=== PATIENT | female | born 1955 | race Caucasian/White ===

== ENCOUNTER → 2016-10-13 | Day surgery (SDC) | payer OTHER ==
[~2016-10-13] MED LIST: LIDOCAINE 1% 2 ML INJ ID PRN; LIDOCAINE 1% 2 ML INJ ONE; LR 1,000 ML IV ONE; NALOXONE HCL 0.4 MG/ML INJ IVP PRN; NS 500 ML IV SCH; PROPOFOL 200 MG/20 ML VIAL ONE; fentaNYL 100 MCG/2 ML INJ IVP PRN
--- NOTE | 2016-10-13 08:08 | PDGENHP ---
History & Physical Chief Complaint: hnpcc History of Present Illness: 61 year old female presents for evaluation of iron defiency anemia, Crohns, and HNPCC Pertinent Past, Social, Family History: FaMHx: sis HNPCC. PMHx: Ovarian,Crohns disease, Gibson. SoHx: Unremarkable Relevant Physical Exam: HEENT: anicteric. CV: RRR +s1s2. Lungs: CTAB. Abd: soft, nt, +BS Cardiorespiratory Assessment: ASA 2. Mall: 2
--- NOTE | 2016-10-13 08:09 | PDANEPAE ---
ANE History of Present Illness iron deficiency anemia ANE Past Medical History - Cardiovascular History Hx Hypertension: No Hx Arrhythmias: No Hx Chest Pain: No Hx Coronary Artery / Peripheral Vascular Disease: No Hx CHF / Valvular Disease: No Hx Palpitations: No - Pulmonary History Hx COPD: No Hx Asthma/Reactive Airway Disease: No Hx Recent Upper Respiratory Infection: No Hx Oxygen in Use at Home: No Hx Sleep Apnea: No Sleep Apnea Screening Result - Last Documented: Negative - Neurologic History Hx Cerebrovascular Accident: No Hx Seizures: No Hx Dementia: No - Endocrine History Hx Diabetes: No - Renal History Hx Renal Disorders: No - Liver History Hx Hepatic Disorders: No - Neurological & Psychiatric Hx Hx Neurological and Psychiatric Disorders: No - Cancer History Hx Cancer: Yes Cancer History Comment: OVARIAN CANCER - Congenital Disorder History Hx Congenital Disorders: No - GI History Hx Gastrointestinal Disorders: Yes Gastrointestinal History Comment: CHRONS DISEASE. HOSPITALIZED JULY 2016 W/ BOWEL OBSTRUCTION - Other Health History Other Health History: NEG - Chronic Pain History Chronic Pain: No - Surgical History Prior Surgeries: TOTAL HYSTERECTOMY. BOWEL RESECTION ANE Review of Systems - Exercise capacity METS (RN): 5 METS ANE Patient History - Allergies Allergies/Adverse Reactions: mesalamine [From Lialda] Allergy (Intermediate, Verified 10/13/16 07:04) GI UPSET midazolam [From Versed] Allergy (Verified 10/13/16 07:04) GROGGY FOR DAYS Sulfa (Sulfonamide Antibiotics) Allergy (Verified 10/13/16 06:46) Vomiting ENTERIC COATING Allergy (Uncoded 10/13/16 07:04) - Home Medications Home Medications: Herbals/Supplements -Info Only 10/06/16 [Last Taken 1 Week Ago] - NPO status NPO Since - Liquids (Date): 10/12/16 NPO Since - Liquids (Time): 23:00 NPO Since - Solids (Date): 10/11/16 NPO Since - Solids (Time): 20:00 - Smoking Hx Smoking Status: Former smoker - Family Anes Hx Family Hx Anesthesia Complications: SISTER W/SNEEZING W/ANESTH ANE Labs/Vital Signs - Vital Signs Blood Pressure: 127/84 Heart Rate: 77 Respiratory Rate: 16 O2 Sat (%): 95 Height: 160.02 cm Weight: 52.163 kg ANE Physical Exam - Airway Neck exam: FROM Mallampati Score: Class 2 Mouth exam: normal dental/mouth exam - Pulmonary Pulmonary: no respiratory distress - Cardiovascular Cardiovascular: regular rate and rhythym - ASA Status ASA Status: II ANE Anesthesia Plan Anesthesia Plan: GA with mask
--- NOTE | 2016-10-13 08:21 | POSTOPPROG ---
Post Op Note Date of Operation: 10/13/16 Surgeon: Ruben Andersen Anesthesia: IV Sedation Pre-op Diagnosis: iron deficiency anemia, HNPCC, Crohns Post-op Diagnosis: gastritis, Indication: iron def, HNPCC, Crohns Procedure: EGD with Bx, EUS, colonoscopy. Findings: gastritis, hh, ulcers colon Inf/Abcess present in the surg proc area at time of surgery?: No Specimen(s): gastritis C.s. random colon
[2016-10-13 09:08] VITALS: PULSE 70
--- NOTE | 2016-10-13 09:10 | GPN ---
[f rep st] PROCEDURE NOTE DATE OF PROCEDURE: 10/13/16 PROCEDURE: Esophagogastroduodenoscopy with biopsy. Endoscopic ultrasound. INDICATION: The patient is a 61-year-old female with a history of iron deficiency anemia as well as HNPCC who presents for further evaluation. CONSENT: Risks, benefits, and alternatives of the procedure were discussed in great detail with the patient. Risks of infection, bleeding, perforation, sedation, and pancreatitis were discussed. All questions answered, and informed consent was obtained. MEDICATIONS: Propofol. Please see anesthesiology record for details. ESTIMATED BLOOD LOSS: Insignificant. ESOPHAGOGASTRODUODENOSCOPY EXAMINATION: The Olympus upper endoscope was introduced in the mouth and advanced to the esophagus. The proximal, mid, and distal esophagus was normal in appearance. The stomach was entered and closely examined including retroflexed views of the angularis, cardia, and fundus. A small hiatal hernia was noted. The mucosa in the antrum and body was erythematous in a patchy distribution, and biopsies were taken. The duodenal bulb and second portion of duodenum were normal in appearance. Biopsies were taken to rule out celiac sprue. The ampulla was visualized with the side-viewing echoendoscope and was normal in appearance. ENDOSCOPIC ULTRASOUND EXAMINATION: The Olympus linear echoendoscope was introduced into the mouth and advanced to the second portion of the duodenum. The esophagus, stomach, and duodenum were visualized endosonographically. The pancreas was carefully examined from the uncinate process of the tail where the spleen was seen. In the head of the pancreas, it was mildly hypoechoic, but no mass lesion was seen despite careful examination. The pancreatic parenchyma did have hyperechoic foci and several dilated side branches. The common bile duct was seen without stone, stricture, stenosis. The liver was normal in appearance. No periportal, perigastric, or peripancreatic lymph nodes were visualized. IMPRESSION: 1. Gastritis, status post biopsy. 2. Biopsies for celiac sprue. 3. No mass lesion seen in the pancreas. RECOMMENDATIONS: 1. Follow up on biopsy results. 2. Proceed with colonoscopy. 3. If colonoscopy normal, would recommend capsule endoscopy. 4. Repeat EGD/EUS in 3 years. /[id number]/MODL MTDD
--- NOTE | 2016-10-13 09:16 | POSTANESTH ---
Post Anesthetic Evaluation Cardiovascular Status: Normal, Stable Respiratory Status: Normal, Stable Level of Consciousness/Mental Status: Can Participate in Eval Pain Control: Adequate, Prn Tx Ordered Nausea/Vomiting Control: Adequate, Prn Tx Ordered Complications Possibly Related to Anesthesia: None Noted
[2016-10-13 09:18] VITALS: BP 111/82
[2016-10-13 09:28] VITALS: O2SAT 95
[2016-10-13 09:48] VITALS: RESP 18
[2016-10-13 10:02] VITALS: TEMP 97.3
--- NOTE | 2016-10-13 10:30 | GPN ---
[f rep st] PROCEDURE NOTE DATE OF PROCEDURE: 10/13/2016 PROCEDURE: Colonoscopy with biopsy. 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 CONSENT: Risks, benefits, and alternatives of the procedure were discussed in great detail with the patient. Risk of infection, bleeding, perforation, and sedation were discussed. All questions answered and informed consent was obtained. MEDICATIONS: Propofol. Please see Anesthesiology record for details. ESTIMATED BLOOD LOSS: Insignificant. COLONOSCOPIC EVALUATION: A rectal exam was done and no palpable mass was felt. The Olympus colonoscope was introduced in the rectum and advanced to the cecum where the ileocecal valve and the appendiceal orifice were visualized. There did appear to be a prior colonic resection around the area of the hepatic flexure. Scattered erythema throughout the colon were multiple ulcerations. Oozing was noted at several of these locations. Biopsies were taken for surveillance of her Crohn disease in 4 quadrants every 10cms. No polyps or mass lesion was seen. Retroflexion was performed. IMPRESSION: 1. Erythematous, ulcerated mucosa in patchy areas, consistent with Crohn disease. 2. Random biopsies taken. RECOMMENDATIONS: 1. Follow up on biopsy results. 2. Repeat colonoscopy in 1 year due to her history of Crohn's and Gibson syndrome. /[id number]/MODL MTDD
== END | disposition home or self-care (01) ==
LOC: FSGY 06:29
PROVIDERS: ATTEND Internal Medicine Gastroenterology
PROC: 0DBE8ZX Excision of Large Intestine, Via Natural or Artificial Opening Endoscopic, Diagnostic (ICD-10-PCS; principal; 2016-10-13 08:00)
PROC: 0DB68ZX Excision of Stomach, Via Natural or Artificial Opening Endoscopic, Diagnostic (ICD-10-PCS; principal; 2016-10-13 08:00)
PROC: 0DB98ZX Excision of Duodenum, Via Natural or Artificial Opening Endoscopic, Diagnostic (ICD-10-PCS; principal; 2016-10-13 08:00)
DX: K29.70 Gastritis, unspecified, without bleeding (principal); K50.90 Crohn's disease, unspecified, without complications; D50.9 Iron deficiency anemia, unspecified; Z15.09 Genetic susceptibility to other malignant neoplasm; Z85.43 Personal history of malignant neoplasm of ovary
CPT/HCPCS: J2704